=== PATIENT | female | born 2005 | race Two or more races ===

== ENCOUNTER 2023-12-22 14:18 | Emergency (ER) | payer OTHER ==
[~2023-12-22] VITALS: Ht 157.5 cm; Wt 50.3 kg
[2023-12-22] MEDS ORDERED: FOLIC ACID0.8 M1 (15:34)
[2023-12-22] MEDS ORDERED: 0.9 % SODIUM CHLORIDE 1,000 ML IV STA (16:53)
[2023-12-22] MEDS ORDERED: FAMOTIDINE/PF 20 MG/2 ML VIAL IV ONE (17:00)
[2023-12-22] MEDS ORDERED: ONDANSETRON HCL 2 MG/ML VIAL IV ONE (17:00)
[2023-12-22 17:15] LABS: HEMATOCRIT 41.3 % (36.0-45.00); HEMOGLOBIN 14.4 g/dL (12.0-15.00); MEAN CELL VOLUME 88.4 fL (80.00-100.00); MEAN CORPUSCULAR HEMOGLOBIN 30.9 pg (27.00-32.0); MEAN CORPUSCULAR HGB CONC 34.9 g/dl (32.0-36.0); PLATELET COUNT 271 K/uL (150-450); RED BLOOD COUNT 4.67 M/uL (4.00-6.00); RED CELL DISTRIBUTION WIDTH 13.5 % (11.5-14.5)
[2023-12-22 17:50] LABS: BILIRUBIN TOTAL 0.45 mg/dL (0.3-1.2); CALCIUM 9.8 mg/dL (8.5-10.1); CREATININE SERUM 0.61 mg/dL (0.55-1.02); GFR 125.04; POTASSIUM 4.65 mEq/L (3.5-5.1)
[2023-12-22 17:51] LABS: PH,URINE 5.5 (5.0-8.0); URINE APPEARANCE Cloudy; URINE BILIRRUBIN Small (NEGATIVE); URINE BLOOD Negative; URINE COLOR Dark Yellow; URINE GLUCOSE Negative (NEGATIVE); URINE LEUKOCYTE Trace; URINE NITRATE Negative; URINE PROTEIN 30 (NEGATIVE)
[2023-12-22 17:55] LABS: URINE BACTERIA 3534.2 uL (0.0-1933); URINE RBC 12.2 uL (0.0-20.8)
[2023-12-22] MEDS ORDERED: NITROFURANTOIN MONOHYD/M-CRYST 100 MG CAPSULE PO ONE (19:45)
== END 2023-12-22 19:54 | disposition home or self-care (01) ==
LOC: ER 14:18
PROVIDERS: Emergency Medicine
DX: N39.0 Urinary tract infection, site not specified (principal); R11.10 Vomiting, unspecified; Z88.6 Allergy status to analgesic agent

== ENCOUNTER 2023-12-24 06:10 | Emergency (ER) | payer OTHER ==
[~2023-12-24] VITALS: Ht 157.5 cm; Wt 50.3 kg
[~2023-12-24 06:10] MED LIST: FOLIC ACID0.8 M1
[2023-12-24] MEDS ORDERED: METOCLOPRAMIDE HCL 5 MG/ML VIAL IM STA (06:30)
[2023-12-24] MEDS ORDERED: RINGERS SOLUTION,LACTATED 1,000 ML IV STA (06:30)
[2023-12-24] MEDS ORDERED: ONDANSETRON HCL 2 MG/ML VIAL IV STA (06:31)
[2023-12-24] MEDS ORDERED: FAMOtidine 10 MG/ML (4ML VIAL) IV PUSH STA (06:31)
[2023-12-24 07:16] LABS: CALCIUM 9.5 mg/dL (8.5-10.1); CREATININE SERUM 0.62 mg/dL (0.55-1.02); GFR 122.72; HEMATOCRIT 39.1 % (36.0-45.00); HEMOGLOBIN 13.7 g/dL (12.0-15.00); MEAN CELL VOLUME 89.2 fL (80.00-100.00); MEAN CORPUSCULAR HEMOGLOBIN 31.2 pg (27.00-32.0); PLATELET COUNT 246 K/uL (150-450); POTASSIUM 3.84 mEq/L (3.5-5.1); RED BLOOD COUNT 4.38 M/uL (4.00-6.00); RED CELL DISTRIBUTION WIDTH 13.3 % (11.5-14.5)
== END 2023-12-24 07:53 | disposition home or self-care (01) ==
LOC: ER 06:11
DX: O21.0 Mild hyperemesis gravidarum (principal); Z88.6 Allergy status to analgesic agent

== ENCOUNTER 2024-03-14 12:42 | Outpatient (CLI) | payer OTHER | END 2024-03-14 12:45 | disposition home or self-care (01) | LOC: PRENATAL 12:42 | PROVIDERS: ATTEND Obstetrics & Gynecology Maternal & Fetal Medicine | DX: O35.3XX0 Maternal care for (suspected) damage to fetus from viral disease in mother, not applicable or unspecified (principal); O44.00 Complete placenta previa NOS or without hemorrhage, unspecified trimester; Z3A.22 22 weeks gestation of pregnancy ==

== ENCOUNTER 2024-04-19 10:20 | Outpatient (CLI) | payer OTHER | END 2024-04-19 10:22 | disposition home or self-care (01) | LOC: PRENATAL 10:20 | PROVIDERS: ATTEND Obstetrics & Gynecology Maternal & Fetal Medicine | DX: O26.849 Uterine size-date discrepancy, unspecified trimester (principal); O44.00 Complete placenta previa NOS or without hemorrhage, unspecified trimester; Z3A.27 27 weeks gestation of pregnancy ==

== ENCOUNTER 2024-05-06 12:37 | Emergency (ER) | payer OTHER ==
[~2024-05-06] VITALS: Ht 157.5 cm; Wt 58.1 kg
[2024-05-06] MEDS ORDERED: PRENA1 CHEW TA1.4 MG (12:49)
[2024-05-06] MEDS ORDERED: ACETAMINOPHEN 500 MG GEL..CAP PO ONE (13:15)
[2024-05-06] MEDS ORDERED: GUAIFENESIN 200 MG/10 ML BLIST.PACK PO ONE (13:15)
[2024-05-06 13:49] LABS: HEMATOCRIT 33.7 % (36.0-45.00); HEMOGLOBIN 11.2 g/dL (12.0-15.00); MEAN CELL VOLUME 90.6 fL (80.00-100.00); MEAN CORPUSCULAR HEMOGLOBIN 30.2 pg (27.00-32.0); MEAN CORPUSCULAR HGB CONC 33.3 g/dl (32.0-36.0); PLATELET COUNT 226 K/uL (150-450); RED BLOOD COUNT 3.72 M/uL (4.00-6.00); RED CELL DISTRIBUTION WIDTH 13.6 % (11.5-14.5)
== END 2024-05-06 16:47 | disposition home or self-care (01) ==
LOC: ER 12:39
PROVIDERS: General Practice
DX: O99.513 Diseases of the respiratory system complicating pregnancy, third trimester (principal); J06.9 Acute upper respiratory infection, unspecified; Z3A.30 30 weeks gestation of pregnancy; Z88.6 Allergy status to analgesic agent; Z87.09 Personal history of other diseases of the respiratory system; Z20.822 Contact with and (suspected) exposure to COVID-19

== ENCOUNTER 2024-05-31 09:10 | Outpatient (CLI) | payer OTHER ==
[~2024-05-31 09:10] MED LIST changes: +PRENA1 CHEW TA1.4 MG
== END 2024-05-31 09:11 | disposition home or self-care (01) ==
LOC: PRENATAL 09:10
PROVIDERS: ATTEND Obstetrics & Gynecology Maternal & Fetal Medicine
DX: O26.849 Uterine size-date discrepancy, unspecified trimester (principal); O36.8199 Decreased fetal movements, unspecified trimester, other fetus; O99.019 Anemia complicating pregnancy, unspecified trimester; Z3A.33 33 weeks gestation of pregnancy

== ENCOUNTER 2024-06-15 19:24 | Outpatient (CLI) | payer OTHER ==
[2024-06-15 18:35] VITALS: BP 109/67
[2024-06-15] MEDS ORDERED: RINGERS SOLUTION,LACTATED 1,000 ML IV SCH (19:45)
[2024-06-15] MEDS ORDERED: TERBUTALINE SULFATE 1 MG/ML AMPUL SUBCUTANEO SCH (19:45)
[2024-06-15] MEDS ORDERED: AMPICILLIN SODIUM 2,000 MG VIAL IV SCH (20:00)
[2024-06-15 20:01] LABS: PH,URINE 6.5 (5.0-8.0); URINE APPEARANCE Cloudy; URINE BILIRRUBIN Negative (NEGATIVE); URINE BLOOD Negative; URINE COLOR Yellow; URINE GLUCOSE Negative (NEGATIVE); URINE KETONE Trace (NEGATIVE); URINE LEUKOCYTE Negative; URINE NITRATE Negative; URINE PROTEIN Negative (NEGATIVE); URINE UROBILINOGEN 0.2 E.U./dl
[2024-06-15 20:02] LABS: URINE BACTERIA 1478.5 uL (0.0-1933); URINE EPITHELIAL CELLS 79.6 uL (0.0-38.8); URINE RBC 2.2 uL (0.0-20.8); URINE WBC 42.4 uL (0.0-23.2)
[2024-06-15 20:03] LABS: HEMATOCRIT 34.9 % (36.0-45.00); HEMOGLOBIN 11.8 g/dL (12.0-15.00); MEAN CELL VOLUME 88.2 fL (80.00-100.00); MEAN CORPUSCULAR HEMOGLOBIN 29.9 pg (27.00-32.0); MEAN CORPUSCULAR HGB CONC 33.9 g/dl (32.0-36.0); PLATELET COUNT 200 K/uL (150-450); RED BLOOD COUNT 3.96 M/uL (4.00-6.00); RED CELL DISTRIBUTION WIDTH 14.1 % (11.5-14.5)
[2024-06-15 21:21] LABS: URINE CAST 0.58 uL (0.0-1.40)
[2024-06-15 23:28] VITALS: BP 115/73; O2SAT 98
[2024-06-16 03:23] VITALS: BP 104/61; O2SAT 99
[2024-06-16 07:38] VITALS: BP 103/65
[2024-06-16 11:01] VITALS: BP 96/60
[2024-06-16 12:40] VITALS: BP 96/60
== END 2024-06-16 12:40 | disposition home or self-care (01) ==
LOC: OBS/DEL 19:24
PROVIDERS: ATTEND Obstetrics & Gynecology
DX: O26.893 Other specified pregnancy related conditions, third trimester (principal); Z3A.36 36 weeks gestation of pregnancy; R10.2 Pelvic and perineal pain; Z88.6 Allergy status to analgesic agent

== ENCOUNTER 2024-07-11 15:56 | Inpatient (IN) | payer OTHER ==
[~2024-07-11] VITALS: Ht 157.5 cm; Wt 59.9 kg
[2024-07-11 16:16] VITALS: BP 119/74
[2024-07-11 16:54] LABS: HEMATOCRIT 38.5 % (36.0-45.00); HEMOGLOBIN 12.7 g/dL (12.0-15.00); MEAN CELL VOLUME 87.4 fL (80.00-100.00); MEAN CORPUSCULAR HEMOGLOBIN 28.9 pg (27.00-32.0); PLATELET COUNT 214 K/uL (150-450); RED BLOOD COUNT 4.41 M/uL (4.00-6.00); RED CELL DISTRIBUTION WIDTH 14.2 % (11.5-14.5)
[2024-07-11 17:20] LABS: ALBUMIN 2.9 gm/dL (3.4-5.0); BILIRUBIN TOTAL 0.33 mg/dL (0.3-1.2); CALCIUM 9.1 mg/dL (8.5-10.1); CREATININE SERUM 0.62 mg/dL (0.55-1.02); GFR 122.72; GLOBULINA 3.3 G/DL (2.4-3.5); POTASSIUM 3.45 mEq/L (3.5-5.1); TOTAL PROTEIN 6.2 gm/dL (6.4-8.2)
[2024-07-11 17:28] LABS: INR < 0.93; PARTIAL THROMBOPLASTIN TIME 28.1 SECONDS (22.0-34.0); PROTHROMBIN TIME 10.2 SECONDS (9.0-11.5)
[2024-07-11 19:51] VITALS: BP 122/73
[2024-07-11] MEDS ORDERED: MISOPROSTOL 25 MCG TABLET ONE (20:28)
[2024-07-11] MEDS ORDERED: MISOPROSTOL 25 MCG TABLET VAG ONE (20:45)
[2024-07-11 23:22] VITALS: BP 127/73
[2024-07-12] VITALS (8 sets, daily range): BP systolic 91–131; BP diastolic 64–87
[2024-07-12] MEDS ORDERED: CITRIC ACID/SODIUM CITRATE 30 ML BLIST.PACK PO ONE ×2 (07:28→07:45)
[2024-07-12] MEDS ORDERED: OXYTOCIN 500 ML IV SCH (07:30)
[2024-07-12] MEDS ORDERED: MORPHINE SULFATE 4 MG/ML CARTRIDGE IV ONE (07:45)
[2024-07-12] MEDS ORDERED: OXYTOCIN 20 UNITS/1000ML RL PIGGYBAG IV ONE (11:50)
[2024-07-12] MEDS ORDERED: ERYTHROMYCIN BASE OPHT 1GM EACH TUBE OP ONE ×2 (11:50→14:00)
[2024-07-12] MEDS ORDERED: CHLORHEXIDINE GLUCONATE 120 ML BOTTLE TOP ONE (11:50)
[2024-07-12] MEDS ORDERED: LIDOCAINE HCL 1% 10ML VIAL ONE (11:51)
[2024-07-12] MEDS ORDERED: METHYLERGONOVINE MALEATE 0.2 MG/ML AMPUL ONE (12:38)
[2024-07-12] MEDS ORDERED: OXYTOCIN 1,000 ML IV SCH (13:45)
[2024-07-12] MEDS ORDERED: TRAMADOL HCL 50 MG TABLET PO PRN (13:45)
[2024-07-12] MEDS ORDERED: CHLORHEXIDINE GLUCONATE 120 ML BOTTLE TOP SCH (13:45)
[2024-07-12] MEDS ORDERED: ACETAMINOPHEN 500 MG GEL..CAP PO PRN (13:45)
[2024-07-12] MEDS ORDERED: LIDOCAINE HCL 1% 10ML VIAL IJ ONE (14:00)
[2024-07-12] MEDS ORDERED: METHYLERGONOVINE MALEATE 0.2 MG/ML AMPUL IM ONE (14:00)
[2024-07-12] MEDS ORDERED: BENZOCAINE/MENTHOL 90 ML BOTTLE TOP SCH (14:00)
[2024-07-13 01:19] VITALS: BP 109/70
[2024-07-13 06:35] VITALS: BP 114/74
[2024-07-13 08:32] VITALS: BP 110/66
[2024-07-13 16:07] VITALS: BP 110/80
[2024-07-14] VITALS: BP 109/75
[2024-07-14 07:44] VITALS: BP 113/77
== END 2024-07-14 12:22 | disposition home or self-care (01) | DRG 807 ==
LOC: LDR 15:56 → OB/GYN 15:56
PROVIDERS: ADMIT Obstetrics & Gynecology; ATTEND Obstetrics & Gynecology
PROC: 4A1HXCZ Monitoring of Products of Conception, Cardiac Rate, External Approach (ICD-10-PCS; 2024-07-11)
PROC: 3E0P7VZ Introduction of Hormone into Female Reproductive, Via Natural or Artificial Opening (ICD-10-PCS; 2024-07-11)
PROC: 10E0XZZ Delivery of Products of Conception, External Approach (ICD-10-PCS; principal; 2024-07-12)
PROC: 0KQM0ZZ Repair Perineum Muscle, Open Approach (ICD-10-PCS; 2024-07-12)
PROC: 0UQG7ZZ Repair Vagina, Via Natural or Artificial Opening (ICD-10-PCS; 2024-07-12)
PROC: 3E033VJ Introduction of Other Hormone into Peripheral Vein, Percutaneous Approach (ICD-10-PCS; 2024-07-12)
DX: O70.1 Second degree perineal laceration during delivery (principal); Z37.0 Single live birth; Z3A.39 39 weeks gestation of pregnancy